=== PATIENT | female | born 1995 | race Caucasian/White ===

== ENCOUNTER 2025-05-22 18:52 | Emergency (ER) | payer OTHER ==
[~2025-05-22] VITALS: Ht 177.8 cm; Wt 86.2 kg
[2025-05-22] MEDS ORDERED: XANAX0.25 MG PO (19:00)
[2025-05-22] MEDS ORDERED: SODIUM CHLORIDE 0.9% 1,000 ML IV ONE (19:00)
[2025-05-22] MEDS ORDERED: PAXIL10 MG PO (19:01)
[2025-05-22] MEDS ORDERED: REMERON15 M2 PO (19:02)
[2025-05-22 19:13] LABS: BASO # 0.0 10*3/uL (0.0-0.1); BASO % 0.8 % (0.0-1.0); EOS # 0.1 10*3/uL (0.0-0.4); EOS % 1.3 % (1.0-4.0); MEAN CELL VOLUME 95.1 fl (81.0-99.0); MEAN CORPUSCULAR HGB 32.2 pg (27.0-31.0); MEAN PLATELET VOLUME 8.7 fl (9.6-12.3); MONO # 0.5 10*3/uL (0.1-1.0); MONO % 8.7 % (3.0-9.0); NEUT # 2.8 10*3/uL (2.3-7.9); NEUT % 53.5 % (47.0-73.0); NUCLEATED RED BLOOD CELL 0.0 % (0.0-0.0); NUCLEATED RED BLOOD CELL 0.0 10*3/uL (0.0-0.0); PLATELET COUNT AUTOMATED 186 10*3/uL (130-400); RED CELL DISTRI WIDTH 12.3 % (0-14.5)
[2025-05-22 20:14] LABS: BUN 6 mg/dl (9-23); CPK 293 U/L (34-171); SGPT/ALT 181 U/L (5-49)
[2025-05-22] MEDS ORDERED: POTASSIUM CHLORIDE 20 MEQ TAB PO ONE (20:20)
[2025-05-22 20:31] LABS: ETHYL ALCOHOL 348.1 mg/dl (<3)
[2025-05-22 21:27] LABS: BILIRUBIN Negative (Negative); BLOOD Negative (Negative); CLARITY Clear (Clear); COLOR Yellow (Yellow); KETONE Negative (Negative); LEUKO ESTERASE Trace (Negative); NITRITE Negative (Negative); PH 7.0 (4.5-8.0); SPECIFIC GRAVITY <= 1.005 (1.001-1.030); UROBILINOGEN 1.0 E.U./dl (0.0-1.0)
[2025-05-22 21:34] LABS: URINE AMPHETAMINES Negative (1000ng/ml); URINE BARBITURATES Negative (200ng/ml); URINE BENZODIAZEPINES Negative (200ng/ml); URINE CANNABINOIDS (THC) Negative (50ng/ml); URINE COCAINE Negative (300ng/ml); URINE METHADONE Negative (300ng/ml); URINE OPIATES Negative (300ng/ml); URINE PHENCYCLIDINE Negative (25ng/ml)
[2025-05-22] MEDS ORDERED: 'XANAX1 MG PO (21:38)
[2025-05-22] MEDS ORDERED: BUPRENORPHINE HY8 MG SL (21:39)
[2025-05-22 21:43] LABS: BACTERIA 1+; RBC 0-2 rbc/hpf (0-2)
[2025-05-22] MEDS ORDERED: diazePAM 10 MG/2 ML SYR IV ONE (21:55)
[2025-05-22] MEDS ORDERED: diazePAM 10 MG/2 ML SYR IM ONE (22:10)
[2025-05-23] MEDS ORDERED: POTASSIUM CHLO20 ME3 PO (09:33)
== END 2025-05-23 09:58 | disposition home or self-care (01) ==
LOC: ED 18:52
PROVIDERS: Nurse Practitioner Family
DX: F43.21 Adjustment disorder with depressed mood (principal); E87.6 Hypokalemia; F10.10 Alcohol abuse, uncomplicated; R74.01 Elevation of levels of liver transaminase levels; F31.9 Bipolar disorder, unspecified; F41.9 Anxiety disorder, unspecified; Z79.899 Other long term (current) drug therapy; Y90.8 Blood alcohol level of 240 mg/100 ml or more